=== PATIENT | male | born 1955 | race Caucasian/White ===

== ENCOUNTER → 2022-10-02 | Outpatient (CLI) | payer OTHER ==
--- NOTE | 2022-10-02 18:50 | DIREP ---
PROCEDURE:XRAY SPINE THORACIC 3 VWS COMPARISON:None. INDICATIONS:Encounter for general adult medical examination without abnormal findings TECHNIQUE:AP & lateral views of the thoracic spine and a swimmer's view of the cervicothoracic junction are provided. FINDINGS: ALIGNMENT:Normal. VERTEBRAE:Normal vertebral height. Mild anterior and lateral osteophyte formation. DISK SPACES:Normal. OTHER:Normal. CONCLUSION:Mild degenerative changes without acute bony abnormality. Dictated by: Sima Iniguez M.D. on 10/02/2022 at 06:48 PM
--- NOTE | 2022-10-02 18:52 | DIREP ---
PROCEDURE:XRAY SPINE LUMBAR 2-3 VWS COMPARISON:None. INDICATIONS:Encounter for general adult medical examination without abnormal findings TECHNIQUE:AP, lateral, and coned down lateral views of the lumbar spine are provided. FINDINGS: ALIGNMENT:Normal. VERTEBRAE:Normal vertebral height. Moderate anterior lateral osteophyte formation. DISK SPACES:Moderate loss of disc height at the L4-5 level. Mild loss of disc height at L3-4. SPONDYLOLISTHESIS:None. SACROILIAC JOINTS:Normal. OTHER:Vascular calcification. CONCLUSION:Degenerative changes without acute bony abnormality. Dictated by: Sima Iniguez M.D. on 10/02/2022 at 06:50 PM
== END | disposition home or self-care (01) ==
LOC: RAD 12:48
PROVIDERS: ATTEND Nurse Practitioner
DX: M47.817 Spondylosis without myelopathy or radiculopathy, lumbosacral region (principal); Z00.00 Encounter for general adult medical examination without abnormal findings; M47.814 Spondylosis without myelopathy or radiculopathy, thoracic region; M25.78 Osteophyte, vertebrae
CPT/HCPCS: 72070; 72072; 72100